=== PATIENT | male | born 1940 | race Caucasian/White ===

== ENCOUNTER 2016-08-12 15:22 | Emergency (ER) | payer OTHER, MEDICARE ==
[2016-08-12 15:35] VITALS: RESP 16
[2016-08-12] MEDS ORDERED: TDAP ADULT 0.5 ML INJ (BOOSTRIX) IM ONE (16:05)
[2016-08-12] MEDS ORDERED: CEFAZOLIN 330 MG/ML IM SYRINGE IM ONE ×2 (16:50→17:30)
--- NOTE | 2016-08-12 17:02 | EDPHY ---
H & P Stated Complaint: L ring finger caught in car window Source: Patient - Personal History Current Tetanus Diphtheria and Acellular Pertussis (TDAP): Unsure - Medical/Surgical History Other PMH: afib. CHF - Social History Smoking Status: Never smoked Time Seen by Provider: 08/12/16 15:54 HPI/ROS: CHIEF COMPLAINT: Crush injury HISTORY OF PRESENT ILLNESS: Patient was exiting the vehicle and his accidentally rolled the window up on his hand. This crushed his left ring finger between the window and the framing. Sudden onset of pain and laceration of finger. It was bleeding heavily. He has applied a dressing to it. He has minimal pain to the area. The pain is only over the PIP and the fingernail. No tenderness in the PIP, MCP or hand of the affected extremity. No wrist pain. No numbness or tingling. No difficulty flexing the finger. Uncertain when his last tetanus shot was. No other associated complaints or modifying factors. REVIEW OF SYSTEMS: Ten systems reviewed and are negative unless otherwise noted in the HPI EXAMINATION General Appearance: Alert, no distress Cardiovascular: Pulses normal throughout. Symmetric radial pulses 2+. Brisk cap refill in all fingers. Neurological: A&O, sensory symmetric, strength symmetric Skin: Warm and dry. There is laceration involving the distal phalanx of the left ring finger. This does not involve the nail nail bed. No obvious foreign body. Extremities: Tenderness over the distal phalanx of the left ring finger. There is an area of laceration with this. Range of motion is fully intact including extension and flexion. Brisk cap refill the affected finger. There are arthritic changes in all fingers. DIFFERENTIAL DIAGNOSES: Including but not limited to fracture, fracture dislocation, fracture, laceration MDM: 5:05 p.m. Crush injury to the left ring finger. There is a tuft fracture on x-ray. There is extensive arthritic appearance of the hand but no bony tenderness anywhere other than the DIP joint. The injury of the laceration of the finger did not involve the nail and nail bed. The wound has been suture repair. We will administer Ancef. His tetanus has been updated. We will provide bulk dressing with splint of the finger. He will be discharged home with antibiotic prophylaxis and instructions to follow up with hand surgeon for definitive care. PROCEDURE: Digital Block Indication:Finger laceration Consent: Verbal Location: Left ring finger Anesthesia: Lidocaine 1% plain, 0.25% Marcaine plain, 5mL Description: Base of the finger was prepped. 5 mL as above or infused with good anesthesia. No complications. Complications: None PROCEDURE: Laceration repair Consent: Verbal Location: Left ring finger tuft Length of repair: 1 cm Complexity: Complex Layer involvement: Single Anesthesia: Digital block Irrigation: Extensive Debridement: None Procedure description: Following good anesthesia, the wound was copiously irrigated. Wound bed was explored and there is no foreign body noted. No involvement of the nail bed. There is maceration of part of the laceration. Wound borders were approximated loosely due to the suspected tuft fracture. Suture/Staple material: 5-0 Prolene, 4 simple interrupted sutures Wound care: Routine as discussed Suture/Staple removal: 7-10 Days ED Precautions: Worsening pain. Erythema, edema, cyanosis, pallor, paresthesia or anesthesia. SUPERVISION: This patient was independently evaluated without direct examination by the attending physician. Case was discussed with attending physician. (Chase Moreno) Constitutional: Initial Vital Signs Temperature (C) 36.4 C 08/12/16 15:30 Heart Rate 72 08/12/16 15:30 Respiratory Rate 16 08/12/16 15:30 Blood Pressure 109/72 08/12/16 15:30 O2 Sat (%) 95 08/12/16 15:30 O2 Delivery Mode Room Air Allergies/Adverse Reactions: No Known Allergies Allergy (Unverified 08/12/16 15:29) Home Medications: Medication Instructions Recorded Carvedilol [Coreg (*)] 25 mg PO BIDMEAL 08/12/16 Cephalexin [Keflex (*)] 500 mg PO TID #30 cap 08/12/16 Hydrocodone/APAP 5/325 [Clarence 1 - 2 tab PO Q4H PRN #10 tab 08/12/16 5/325 (*)] Spironolact/Hydrochlorothiazid 1 each PO 08/12/16 [Spironolactone-Hctz 25-25 Tab] Warfarin Sodium [Coumadin 5MG (*)] 5 mg PO DAILY16 08/12/16 Medical Decision Making - Diagnostics Imaging Results: Imaging Impressions Finger X-Ray 08/12/16 16:04 Impression: 1. Distal tuft fracture of the left fourth digit. 2. 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 ED Course/Re-evaluation: The patient was evaluated and managed by the physician's logistics assistant. My cosignature indicates that I reviewed the chart and I agree with the findings and plan of care as documented. I am the secondary supervising physician. ( Mary Harmon) - Data Points Medications Given: Discontinued Medications Cefazolin Sodium (Ancef) 2,000 mg IM ONCE ONE PRN Reason: Protocol Stop: 08/12/16 17:31 Last Admin: 08/12/16 17:40 Dose: 2,000 mg Diphtheria/Tetanus/Acell Pertussis (Boostrix) 0.5 ml IM .ONCE ONE Stop: 08/12/16 16:06 Last Admin: 08/12/16 16:20 Dose: 0.5 ml Departure - Departure Disposition: Home, Routine, Self-Care Clinical Impression: Closed fracture of tuft of distal phalanx of finger Qualifiers: Encounter type: initial encounter Qualified Code(s): S62.639A - Displaced fracture of distal phalanx of unspecified finger, initial encounter for closed fracture Finger laceration Qualifiers: Encounter type: initial encounter Qualified Code(s): S61.219A - Laceration without foreign body of unspecified finger without damage to nail, initial encounter Condition: Good Instructions: Finger Fracture (ED), Osteoarthritis (ED), Finger Laceration (ED) , Crush Injury (ED) Additional Instructions: Daily wound care as discussed. Antibiotics as discussed. Follow up with hand surgeon for definitive care. Return to the ER for any neurovascular changes as discussed Referrals: NONE *PRIMARY CARE P,. [Primary Care Provider] - As per Instructions Rylee Amezquita MD [Medical Doctor] - As per Instructions Prescriptions: Cephalexin [Keflex (*)] 500 mg PO TID #30 cap Hydrocodone/APAP 5/325 [Clarence 5/325 (*)] 1 - 2 tab PO Q4H PRN #10 tab PRN Reason: Pain, Moderate
[2016-08-12] MEDS ORDERED: HYDROCOD/APAP 5/325 PREPACK#6 BTL TAKEHOME ONE (17:06)
[2016-08-12] MEDS ORDERED: CEPHALEXIN 500MG PREPACK#4 BTL TAKEHOME ONE (17:06)
[2016-08-12 18:20] VITALS: BP 127/81; PULSE 79; TEMP 98.2; O2SAT 96
== END 2016-08-12 18:20 | disposition home or self-care (01) ==
PROC: 0HQGXZZ Repair Left Hand Skin, External Approach (ICD-10-PCS; principal; 2016-08-12)
DX: S62.635A Displaced fracture of distal phalanx of left ring finger, initial encounter for closed fracture (principal); S61.215A Laceration without foreign body of left ring finger without damage to nail, initial encounter; I50.9 Heart failure, unspecified; Z79.01 Long term (current) use of anticoagulants; Z23 Encounter for immunization; W23.1XXA Caught, crushed, jammed, or pinched between stationary objects, initial encounter; Y93.89 Activity, other specified

== ENCOUNTER 2017-05-13 14:21 | Emergency (ER) | payer OTHER, MEDICARE ==
--- NOTE | 2017-05-13 15:58 | EDPHY ---
HPI/HX/ROS/PE/MDM Narrative: CHIEF COMPLAINT: Shortness of breath HISTORY OF PRESENT ILLNESS: This patient is an anticoagulated (Coumadin) 76 year old male arriving with his complaining of difficulty breathing. He is followed at [facility] for heart failure management and was admitted in October for diureses of about 20lbs of water. He weighed about 201lbs at discharge, and states that today his weight was 224. He does take 40mg Lasix BID and denies any recent changes in dosage. The patient has had increased difficulty breathing at night and when supine which has been worsening over several days. He has noted swelling in his ankles as well. The patient denies shortness of breath throughout the day, but his states she has noted he appears to have increased difficulty. Providers at [facility] recommended he present to the ED for evaluation prior to traveling to [facility] for further care. No chest pain. He does not wear home oxygen. No personal or family history of blood clots. He states his INR has been high lately (3.6 today). He endorses some occasional dietary indiscretions including fajitas at a [employer] restaurant last week. No fever, chills, chest pain, palpitations, vomiting, diarrhea, urinary complaints, headache, lightheadedness. REVIEW OF SYSTEMS: Aside from elements discussed in the HPI, a comprehensive 10-point review of systems was reviewed and is negative. PAST MEDICAL HISTORY: 1. Atrial fibrillation (Coumadin) 2. History of open heart surgery - valve repair 3. Congestive heart failure (Lasix 40mg BID) 4. ICD in place. SOCIAL HISTORY: . at bedside. Followed by cardiology at [facility]. VITAL SIGNS: Reviewed by me GENERAL: Well-developed, well-nourished, tachypneic at rest. HEENT: Atraumatic. Eyes: No icterus, no injection. Mouth: moist mucous membranes. No erythema or lesions. Neck: supple with no adenopathy. LUNGS: Faint soft end-expiratory wheezes. Bibasilar rales. CARDIAC: Irregularly irregular. Systolic murmur. ABDOMEN: Soft, nontender, nondistended, bowel sounds normal. BACK: 10cm Lipoma present to center of back. No CVA tenderness. EXTREMITIES: 2+ pitting edema above sock line. 1+ edema to level of knees. No trauma. Range of motion is normal throughout. NEURO: Alert and oriented, grossly nonfocal. SKIN: Warm and dry, no rash. PSYCHIATRIC: Normal mentation, no agitation. Portions of this note were transcribed by a veterinary medical officer. I personally performed a history, physical exam, medical decision making, and confirmed accuracy of information the transcribed note. ED Course: 76 year old male with history of CHF presents with worsening orthopnea. Exam reveals end-expiratory wheezes and rales bibasilar as well as 2+ pitting edema bilaterally. Plan to administer 40mg IV Lasix. Plan for labs including CBC, chemistries, Troponin, coag, BNP, LFTs. Reviewed chest x-ray. Evidence of cardiomegaly. 17:14 Reassessed. Somewhat better after lasix but still tachypneic. BNP elevated at 9580. I am unsure of the patient's baseline. 17:[address] Caruso beauty consultant at [facility]. Patient was last evaluated in March. At that time patient was quite stable, class one heart failure. Dr. Caruso recommends transfer to telemedicine at [facility] for admission. 18:15 Discussed admission with patient. Although he is reluctant to be admitted and to travel by EMS, he ultimately agreed with the plan. He will be transported to [facility] by ambulance. Patient was stable in the ED until bed was available at [facility] and EMS arrived for transport. BP a bit soft, in the upper 90s following lasix. EMS to watch carefully and given orders for dopamine if pressure should drop below 70s systolic. MDM: Differential diagnosis for the patient's shortness of breath was considered including but not limited to CHF, orthopnea, PE, influenza, pulmonary infectious processes, pulmonary edema, and cardiac causes. - Data Points Imaging Results: Impression: Marked cardiomegaly. No failure or fluid overload. Dictated By: Cj Garza MD Imaging: I viewed and interpreted images myself Laboratory Results: Laboratory Results 05/13/17 16:20 05/13/17 16:20 Medications Given: Discontinued Medications Furosemide (Lasix Injection) 40 mg IVP EDNOW ONE Stop: 05/13/17 16:25 Last Admin: 05/13/17 16:30 Dose: 40 mg General Time Seen by Provider: 05/13/17 15:57 Initial Vital Signs: Initial Vital Signs Temperature (C) 36.7 C 05/13/17 14:25 Heart Rate 91 05/13/17 14:25 Respiratory Rate 18 05/13/17 14:25 Blood Pressure 104/76 05/13/17 14:25 O2 Sat (%) 99 05/13/17 14:25 O2 Delivery Mode Nasal Cannula O2 (L/minute) 2 Allergies/Adverse Reactions: No Known Allergies Allergy (Verified 05/13/17 14:27) Home Medications: Medication Instructions Recorded Carvedilol [Coreg (*)] 6.25 mg PO BIDMEAL 05/13/17 Furosemide [Lasix] 40 mg PO 05/13/17 Losartan Potassium [Cozaar 50 mg 50 mg PO 05/13/17 (*)] Potassium Chloride [Klor-Con M20] 20 meq PO 05/13/17 Spironolactone [Aldactone 25 MG 25 mg PO DAILY 05/13/17 (*)] Warfarin Sodium [Coumadin 5MG (*)] 5 mg PO 05/13/17 Departure - Departure Disposition: Acute Care Hospital Not [facility] Clinical Impression: Orthopnea Acute exacerbation of CHF (congestive heart failure) Qualifiers: Congestive heart failure type: unspecified Qualified Code(s): I50.9 - Heart failure, unspecified Condition: Serious Referrals: NONE *PRIMARY CARE P,. [Primary Care Provider] - As per Instructions Report Scribed for: Louisa Jose Report Scribed by: Katarzyna Wade Date of Report: 05/13/17 Time of Report: 15:58
[2017-05-13] MEDS ORDERED: FUROSEMIDE 40 MG/4 ML VIAL IVP ONE (16:24)
[2017-05-13 16:30] LABS: PLATELET COUNT 147 10^3/uL (150-400)
--- NOTE | 2017-05-13 16:33 | CPEKG ---
Heart Rate: 97 RR Interval: 619 QRSD Interval: 172 QT Interval: 436 QTC Interval: 554 P Carson: 0 QRS Carson: 3 T Wave Carson: 177 EKG Severity - ABNORMAL ECG - EKG Impression: VENTRICULAR-PACED COMPLEXES EKG Impression: LEFT BUNDLE BRANCH BLOCK Electronically Signed By: Ellis York 13-May-2017 19:44:02
[2017-05-13 16:40] LABS: INR 3.56 (0.83-1.16); PROTIME(PATIENT) 35.3 SEC (12.0-15.0)
[2017-05-13 19:02] VITALS: O2SAT 99
[2017-05-13 20:47] VITALS: BP 92/65
[2017-05-13 21:06] VITALS: PULSE 89; RESP 16; TEMP 98.6
== END 2017-05-13 21:51 | disposition short-term general hospital (02) ==
DX: I50.9 Heart failure, unspecified (principal); Z79.01 Long term (current) use of anticoagulants
CPT/HCPCS: 71046; 93005; 96374; 99285; J1940

== ENCOUNTER 2017-12-12 | Inpatient (IN) | payer OTHER, MEDICARE | END 2017-12-15 09:54 | disposition hospice, home (50) | DRG 291 | PROVIDERS: ADMIT Internal Medicine | PROC: 02H633Z Insertion of Infusion Device into Right Atrium, Percutaneous Approach (ICD-10-PCS; principal; 2017-12-12) ==